=== PATIENT | male | born 1985 | race Caucasian/White ===

== ENCOUNTER 2016-05-27 08:53 | Emergency (ER) | payer OTHER ==
[2016-05-27 09:02] VITALS: BP 150/97
[2016-05-27] MEDS ORDERED: Metoclopramide 10 MG/2 ML SDV IVPUSH ONE (09:07)
[2016-05-27] MEDS ORDERED: HYDROmorphone 0.5 MG/0.5 ML Syringe IVPUSH ONE (09:07)
--- NOTE | 2016-05-27 09:12 | EDM.PDOC ---
ED HPI LOWER BACK PAIN/INJURY - General Chief Complaint: Back Pain or Injury Stated Complaint: [facility] Time Seen by Provider: 05/27/16 09:07 Source of Information: Reports: Patient, EMS History Limitations: Reports: No limitations - History of Present Illness INITIAL COMMENTS - FREE TEXT/NARRATIVE: 31-year-old male who is in the [employer]. Reports slipping and falling down stairs this a.m. landing but talked first. States he fell down 2 stairs. Has a problem with the fetus herniated disc in his lower back with left-sided radiculopathy. Initial injury was in July of last year. Confirmed a herniated disc on MRI apparently. Went to physiotherapy program and was living with radiculopathy in his left buttock. Also had a shot of steroids i.e. Kenalog injection into the facet joint which seemed to provide a good deal of relief 6 months ago. He was thinking about having it done again. He had to crawl back up into the home. He was unable to stand erect and walk this morning. Amylase was therefore summoned. At present he reports the pain is about 4/10 with his legs flexed. Denies hitting his head and there was no loss of consciousness. Denies injuring his upper sternum these or ribs or mid back. Symptom Onset Date: 05/27/16 Symptom Onset Time: 07:15 Timing/Duration: Reports: Hour(s):, Sudden onset Location: Reports: lower Quality: Reports: Stabbing, Other Severity: moderate (radicular pain into the left but talked primarily.) Place of Occurrence: other Improves with: Reports: Other (keeping knees flexed and lines supine without moving.) Worsens with: Reports: Movement Context: Reports: fall ( area.) Associated Symptoms: Denies: Chest pain, Constipation, Cough, Diaphoresis, Difficulty walking, Fever/chills, Headache, Loss of appetite, Malaise, Nausea/ vomiting, Paresthesias, Problems urinating, Rash, Seizure, Shortness of breath, Syncope 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 (see below) (none) - Related Data Allergies/ADRs: Allergies Allergy/AdvReac Type Severity Reaction Status Date / Time No Known Allergies Allergy Verified 05/27/16 09:02 Home Meds: Home Meds oxyCODONE HCl/Acetaminophen [Percocet 5-325 mg Tablet] 1 - 2 each PO Q4H PRN # 20 tablet 05/27/16 [Rx] oxyCODONE HCl/Acetaminophen [Percocet 5-325 mg Tablet] 1 - 2 each PO Q4H PRN #5 tablet 05/27/16 [Rx] traMADol [Ultram] 50 mg PO Q6H 05/27/16 [History] Past Medical History - Past Health History Medical/Surgical History: Denies Medical/Surgical History Musculoskeletal History: Reports: Back pain, chronic, Other (see below) Other Musculoskeletal History: herniated disk between C5-S1 - Past Surgical History Musculoskeletal Surgical History: Reports: None Social & Family History - Tobacco Use Smoking Status *Q: Never Smoker Second Hand Smoke Exposure: No - Caffeine Use Caffeine Use: Reports: None - Alcohol Use Days Per Week of Alcohol Use: 2 Number of Drinks Per Day: 2 Total Drinks Per Week: 4 - Recreational Drug Use Recreational Drug Use: No - Living Situation & Occupation Occupation: employed [employer] - Review of Systems Review Of Systems: See Below Constitutional: Denies: fever, chills, malaise, weakness, fatigue, decreased appetite, weight loss HEENT: Reports: No symptoms Respiratory: Reports: no symptoms Cardiovascular: Reports: No symptoms Endocrine: Reports: no symptoms GI/Abdominal: Reports: No symptoms : Reports: no symptoms Musculoskeletal: Reports: back pain (confirmed herniated disc by MRI in the last 8 months. Intermittent falls with left-sided radiculopathy into the buttock and posterior leg to the knee.) Skin: Reports: no symptoms Neurological: Reports: no symptoms Psychiatric: Reports: No symptoms Hematologic/Lymphatic: Reports: no symptoms ED EXAM,LOWER BACK PAIN/INJURY - Physical Exam Exam: See Below Exam Limited By: No limitations General Appearance: alert, WD/WN, mild distress Eye Exam: bilateral eye: normal inspection Throat/Mouth: Normal inspection, Normal lips, Normal oropharynx, Other Head: No: atraumatic Neck: normal inspection, supple, non-tender. No: lymphadenopathy (L), lymphadenopathy (R), thyromegaly Respiratory/Chest: no respiratory distress, lungs clear, normal breath sounds, no accessory muscle use, chest non-tender, other (no evidence of rib or sternal injuries. On this is on firm compression.) Cardiovascular: normal peripheral pulses, regular rate, rhythm, no edema, no gallop, no murmur GI/Abdominal: normal bowel sounds, soft, non tender, no organomegaly, no distention, no abnormal bruit, no mass, other (no scars) Back Exam: full range of motion (he was able to sit up for the examination by grabbing onto they hand rail of the bed.), vertebral tenderness (primarily around lumbar 3-4 vertebra. There are no bradycardia or contusions in this area. ). No: CVA tenderness (L), CVA tenderness (R) Extremities: normal inspection, normal range of motion, non-tender, no pedal edema, other (has some increased pain in the left side on external rotation of the right hip. Straight leg raising to was 60 on the left without any radicular pain. Full external and internal rotation of the hip on the left side. ) Neurological: alert, normal mood/affect, normal dorsiflexion, CN II-XII intact, normal plantar flexion, no motor/sensory deficits, oriented x 3 DTR - Lower Extremities: 0: ankle (R), 2+: knee (R), knee (L), ankle (R), ankle (L) Psychiatric: normal affect, normal mood Skin Exam: Warm, Dry, Intact, Normal color, No rash Course - Vital Signs Last Recorded V/S: Last Vital Signs Temp 36.6 C 05/27/16 08:58 Pulse 78 05/27/16 08:58 Resp 19 05/27/16 08:58 BP 150/97 H 05/27/16 08:58 Pulse Ox 100 05/27/16 08:58 - Orders/Labs/Meds Meds: Medications Discontinued Medications Generic Name Dose Route Start Last Admin Trade Name [place]q PRN Reason Stop Dose Admin Hydromorphone HCl 0.5 mg 05/27/16 09:07 05/27/16 09:27 Dilaudid IVPUSH 05/27/16 09:08 0.5 mg ONETIME ONE Administration Sodium Chloride 1,000 mls @ 150 mls/hr 05/27/16 09:15 05/27/16 09:22 Normal Saline IV 150 mls/hr ASDIRECTED MIROSLAVA Administration Ketorolac Tromethamine 30 mg 05/27/16 09:15 05/27/16 09:26 Toradol IVPUSH 30 mg ONETIME MIROSLAVA Administration Ketorolac Tromethamine Confirm 05/27/16 09:14 05/27/16 09:27 Toradol Administered 05/27/16 09:15 Not Given Dose 30 mg .ROUTE .STK-MED ONE Metoclopramide HCl 10 mg 05/27/16 09:07 05/27/16 09:23 Reglan IVPUSH 05/27/16 09:08 10 mg ONETIME ONE Administration Oxycodone/Acetaminophen 5 tab 05/27/16 10:35 Percocet 325-5 Mg .ROUTE 05/27/16 10:36 .STK-MED ONE - Radiology Interpretation Free Text/Narrative:: 31-year-old male currently in the [employer]. States he simply slipped and fell down 2 stairs this morning landing but not pursed injuring his lower back. Has had previous injury to his lower back beginning in July of last year an MRI confirmed a herniated disc causing left-sided radiculopathy into the buttock and posterior left thigh. He's not sure which level was impinged. He's had a steroid injection which gave him good deal of relief pain. Has had use tramadol intermittently for pain since that time. Since fall today he has severe low back pain radiate to the left buttock. It does not radiate below the knee. Straight leg raising is negative at 60. Internal/external rotation of both hips is normal. Consider possibility of sacroiliitis recently referred pain. Plan CT of his lumbar spine will be carried out to make sure there are no compression fractures occurred although this would be unlikely due to his age of only 31 and he appears to be in good physical condition. IV normal saline 150 mils per hour. Given Dilaudid 0.5 mg IV Toradol 30 mg IV Reglan 10 mg IV for pain relief. - Re-Assessments/Exams Free Text/Narrative Re-Assessment/Exam: 05/27/16 10:19CT of the lumbar spine has been completed. He did not reveal any compression fractures. Did he does have a very slight circumferential disc bulge at L4-L5 level mild posterior disc space narrowing is noted at L5-S1 level. There is no disc herniation is seen posteriorly at L5-S1 which is minimally asymmetric to the left side. This is appears stable from the previous MRI with no central canal stenosis seen neural foramina are called to be patent otherwise.he has been using tramadol for pain relief at home but is not finding this all that effective. I will write a prescription for Percocet 5 /325 mg tablets x20 one or 2 every 4-6 hours needed for pain relief. Continue Aleve 2 tablets every 8 hours to relieve the pain and inflammation. He'll follow up with his personal physician if not markedly improved in 7-10 days time. Note will be given to excuse him from work place for the next 3 days. Departure - Departure Time of Disposition: 10:25 Disposition: Home, Self-Care 01 Condition: fair Clinical Impression: Lumbar back pain with radiculopathy affecting left lower extremity Prescriptions: oxyCODONE HCl/Acetaminophen [Percocet 5-325 mg Tablet] 1 - 2 each PO Q4H PRN # 20 tablet PRN Reason: pain relief. oxyCODONE HCl/Acetaminophen [Percocet 5-325 mg Tablet] 1 - 2 each PO Q4H PRN #5 tablet PRN Reason: pain relief. Instructions: Back Pain, Adult, [id number] Referrals: Ivy Mcelroy PA-C [Primary Care Provider] - Forms: ED Department Discharge, Return to Work/School Form Additional Instructions: evaluation the most part today in regards to reported slip and fall down a couple of stairs landing hard on your by David. This jammed up the lower back causing increasing pain in the left but talk and posterior thigh. History of known herniated disc in the lower back with left-sided sciatica dating back to July of last year. Intermittent problems with buttock pain and low back pain since that time. Improved with steroid injection over 6 months ago. Examination reveals no contusions or abrasions to the area. There is pain localized to the spinous processes of lumbar 2 lumbar 3 vertebra. Straight leg raising was negative at 60 for true nerve root impingement. CT scan of the lumbar spine therefore carried out. It does not reveal any compression fractures of the back. noted small circumferential disc bulge at L45 and similar small bulge posteriorly at the L5-S1 level a little asymmetric towards the left side which is the likely cause of the left Buttock radicular pain.he does not appear to be any different or worse and when compared to the previous MRI.Treatment is therefore conservative. Continue anti-inflammatory Aleve 2 tablets every 8 hours for the next 7-8 days. Percocet 5 325 mg tablets one or 2 every 4-6 hours for pain relief while not at work or driving a motor vehicle. Followup with personal physician in 8 days time. Of course if radicular pain is worsening in that timeframe further MRI may be required to establish whether the nerve root isn't clearly impinged. On exam today it was not found to be impinged by straight leg raising.note given to excuse you from the work place for the next 3 days. If you need longer than this please follow up with her personal physician in this regard
[2016-05-27] MEDS ORDERED: Ketorolac 30 MG/ML SDV ONE (09:14)
[2016-05-27] MEDS ORDERED: Ketorolac 30 MG/ML SDV IVPUSH SCH (09:15)
[2016-05-27] MEDS ORDERED: Sodium Chloride 0.9% 1,000 ML IV SCH (09:15)
--- NOTE | 2016-05-27 10:09 | CT ---
CT lumbar spine Technique: Multiple axial sections were obtained from the mid T12 vertebral body inferiorly to the top of S3. Reconstructed sagittal and coronal images were reviewed. Comparison: Previous MRI lumbar spine study of 06/22/15. Findings: Vertebral bodies and posterior arches are intact. No fracture is identified. Very slight circumferential disc bulge noted L4-L5. Posterior disc has planar margin. Mild posterior disc space narrowing is noted at L5-S1. Very small disc herniation is seen posteriorly at L5-S1 which is minimally asymmetric to the left side. This is stable from previous MRI. No central canal stenosis is seen. Neural foramina are felt to be patent where the nerve roots exit. No abnormal subluxation is seen. Impression: 1. Mild degenerative disc change as noted above which is fairly stable from prior MRI. 2. No acute abnormality is identified on CT study of the lumbar spine. Diagnostic code #3
[2016-05-27] MEDS ORDERED: Acetaminophen/oxyCODONE 325-5 MG Tab ONE (10:35)
== END 2016-05-27 10:40 | disposition home or self-care (01) ==
LOC: JD.ED 08:53
DX: M51.16 Intervertebral disc disorders with radiculopathy, lumbar region (principal)
CPT/HCPCS: 72131; 96361; 96374; 96375; 99284; A9270; J1170; J1885; J2765; J7040

== ENCOUNTER 2023-08-26 14:03 | Emergency (ER) | payer BC ==
[2023-08-26] MEDS: Diphtheria,Pertussis(Acell),Tetanus Vaccine 0.5 ML Syringe IM ONE (15:31)
[2023-08-26 19:40] VITALS: BP 144/89; PULSE 82
== END 2023-08-26 15:25 | disposition home or self-care (01) ==
LOC: JD.ED 14:03
DX: S81.812A Laceration without foreign body, left lower leg, initial encounter (principal); Z79.899 Other long term (current) drug therapy; W26.9XXA Contact with unspecified sharp object(s), initial encounter
CPT/HCPCS: 90471; 90715; 99282; 99282-25